=== PATIENT | female | born 1980 | race Caucasian/White ===

== ENCOUNTER → 2018-05-17 | Outpatient (CLI) | payer OTHER ==
[~2018-05-17] MED LIST: DIGE1TAB PO; DOCO100C PO; LACT1CAP35 PO; PREN1TAB10 PO
[2018-05-17 12:08] LABS: ALANINE AMINOTRANSFERASE 56 U/L (12-78); ALBUMIN 4.3 g/dL (3.4-5.0); ANION GAP 10 mmol/L (5-15); CALCIUM 9.1 mg/dL (8.5-10.1); CHLORIDE 108 mmol/L (98-107); CREATININE 0.99 mg/dL (0.55-1.02)
[2018-05-17 12:09] LABS: BASOPHILS # (AUTO) 0.03 x10^3/uL (0-0.1); BASOPHILS % (AUTO) 1 % (0-1); EOSINOPHILS # (AUTO) 0.11 x10^3/uL (0-0.4); EOSINOPHILS % (AUTO) 2 % (1-7); LYMPHOCYTES # (AUTO) 2.01 x10^3/uL (1-3.4); LYMPHOCYTES % (AUTO) 31 % (22-44); MD NO; MEAN CORPUSCULAR HEMOGLOBIN 30.6 pg (27.0-34.8); MEAN CORPUSCULAR HGB CONC 33.6 g/dL (32.4-35.8); MEAN CORPUSCULAR VOLUME 91.1 fL (80-100); MEAN PLATELET VOLUME 8.1 fL (7.4-10.4); MONOCYTES # (AUTO) 0.32 x10^3/uL (0.2-0.8); MONOCYTES % (AUTO) 5 % (2-9); NEUTROPHILS # (AUTO) 4.08 x10^3/uL (1.8-6.8); NEUTROPHILS % (AUTO) 62 % (42-75); PLATELET COUNT 227 x10^3/uL (130-400); RED BLOOD COUNT 4.64 x10^6/uL (3.82-5.3); RED CELL DISTRIBUTION WIDTH 15.1 % (9.6-15.2)
[2018-05-17 12:13] LABS: ALKALINE PHOSPHATASE 99 U/L (45-117); BILIRUBIN,TOTAL 0.6 mg/dL (0.2-1.0); TOTAL PROTEIN 8.1 g/dL (6.4-8.2)
[2018-05-17 12:38] LABS: MICROSCOPIC AUTO
[2018-05-17 12:39] LABS: CULTURE INDICATED? NO
== END | disposition home or self-care (01) ==
LOC: MERGE 10:50 → STAR 10:50
PROVIDERS: ATTEND Obstetrics & Gynecology Gynecology
DX: Z01.818 Encounter for other preprocedural examination (principal); O72.0 Third-stage hemorrhage
CPT/HCPCS: 36415; 80053; 81001; 84702; 85025

== ENCOUNTER 2018-05-25 07:15 | Day surgery (SDC) | payer OTHER ==
[~2018-05-25] VITALS: Ht 162.6 cm; Wt 68.1 kg
[2018-05-25] MEDS ORDERED: FENTANYL PF 250 MCG/5ML ONE (09:02)
[2018-05-25] MEDS ORDERED: MIDAZOLAM 1 MG/ML, 2ML ONE (09:02)
[2018-05-25] MEDS ORDERED: ONDANSETRON 2MG/ML, 2ML ONE (09:10)
[2018-05-25] MEDS ORDERED: CEFAZOLIN 1,000 MG ONE (09:10)
[2018-05-25] MEDS ORDERED: PROPOFOL 10 MG/ML, 20ML ONE (09:10)
[2018-05-25] MEDS ORDERED: DEXAMETHASONE 4 MG/ML, 1ML ONE (09:10)
[2018-05-25] MEDS ORDERED: SILVER NITRATE STICK TP ONE (09:43)
[2018-05-25] MEDS ORDERED: MEPERIDINE/PF 50 MG/ML ONE (09:50)
[2018-05-25] MEDS ORDERED: OXYcodone 5 MG/5 ML ORAL.SOL UDC PO PRN (10:00)
[2018-05-25] MEDS ORDERED: PROMETHAZINE 25 MG/ML, 1ML IV PRN (10:00)
[2018-05-25] MEDS ORDERED: ACETAMINOPHEN 325 MG TABLET PO PRN (10:00)
[2018-05-25] MEDS ORDERED: hydrALAzine 20 MG/ML, 1ML IV PRN (10:00)
[2018-05-25] MEDS ORDERED: MEPERIDINE/PF 25MG/0.5ML IVPush PRN (10:00)
[2018-05-25] MEDS ORDERED: LABETALOL 5MG/ML, 20ML IV PRN (10:00)
[2018-05-25] MEDS ORDERED: KETOROLAC 30 MG/1 ML IV PRN (10:00)
[2018-05-25] MEDS ORDERED: FENTANYL PF 100 MCG/2ML IV PRN (10:00)
[2018-05-25] MEDS ORDERED: DIAZEPAM 5 MG/ML, 2ML IVPush PRN (10:00)
[2018-05-25] MEDS ORDERED: ALBUTEROL SULFATE 2.5 MG/3 ML NPPB PRN (10:00)
[2018-05-25] MEDS ORDERED: HYDROmorphone 2 MG/ML, 1ML IVPush PRN (10:00)
[2018-05-25] MEDS ORDERED: LACTATED RINGERS 1,000 ML IV SCH (10:59)
[2018-05-25] MEDS ORDERED: ONDANSETRON 2MG/ML, 2ML IVPush PRN (11:00)
[2018-05-25] MEDS ORDERED: KETOROLAC 30 MG/1 ML IVPush PRN (11:00)
[2018-05-25] MEDS ORDERED: OXYcodone/APAP 5/325MG TABLET PO PRN (11:00)
[2018-05-25] MEDS ORDERED: morphine SULFATE 10 MG/ML, 1ML IVPush PRN (11:00)
== END 2018-05-25 12:15 | disposition home or self-care (01) ==
LOC: OR 07:15 → EDBD 07:15 → 4NOR 07:18 → OR 12:15 → MERGE 15:30
PROVIDERS: ATTEND Obstetrics & Gynecology Gynecology
DX: N93.9 Abnormal uterine and vaginal bleeding, unspecified (principal); O73.0 Retained placenta without hemorrhage; D64.9 Anemia, unspecified; J45.909 Unspecified asthma, uncomplicated; Z98.890 Other specified postprocedural states
CPT/HCPCS: 58558; 88305; J0690; J1100; J2175; J2250; J2405; J2704; J3010; G0378